=== PATIENT | female | born 1965 | race Caucasian/White ===

== ENCOUNTER 2017-05-30 20:00 | Emergency (ER) | payer MEDICAID ==
[~2017-05-30] VITALS: Ht 165.1 cm; Wt 96.0 kg
[~2017-05-30 20:00] MED LIST: ASPI-1159 PO; ATOR20TA65 PO
[2017-05-30 22:03] LABS: CLARITY URINE CLEAR (CLEAR); COLOR URINE YELLOW (YELLOW); GLUCOSE URINE NEGATIVE (NEGATIVE); KETONES URINE NEGATIVE (NEGATIVE); LEUKOCYTE ESTERASE URINE TRACE (NEGATIVE); NITRITE URINE NEGATIVE (NEGATIVE); OCCULT BLOOD URINE 2+ (NEGATIVE); PROTEIN URINE NEGATIVE (NEGATIVE); SPECIFIC GRAVITY URINE 1.028 (1.005-1.030); UROBILINOGEN URINE 0.2 E.U./dL (0.2-1.0)
[2017-05-30 22:34] LABS: CHLORIDE 106 mEq/L (98-107)
[2017-05-30 22:38] LABS: CARBON DIOXIDE 28 mEq/L (21-32)
[2017-05-30 22:39] LABS: BASOPHILS % 0.6 % (0.0-2.0); EOSINOPHILS % 1.1 % (0.0-5.0); HEMATOCRIT. 38.2 % (36.0-48.0); HEMOGLOBIN. 12.8 g/dL (12.0-16.0); MEAN CORPUSCULAR HEMOGLOBIN 29.1 pg (28.0-32.0); MEAN CORPUSCULAR VOLUME 86.8 fL (81.0-99.0); MEAN PLATELET VOLUME 8.4 fl (7.4-10.4); MONOCYTES % 7.4 % (2.0-8.0); NEUTROPHILS % 63.9 % (40.0-76.0); PLATELET 326 x1000/uL (130-400); RED CELL DISTRIBUTION WIDTH 15.5 % (11.6-14.6)
[2017-05-30 22:42] LABS: INR 2.9; PARTIAL THROMBOPLASTIN TIME 36.9 sec (23.4-31.0); PROTHROMBIN TIME 30.1 sec (9.4-11.6)
[2017-05-30 22:45] LABS: TROPONIN I < 0.02 ng/mL (0.00-0.04)
[2017-05-30] MEDS ORDERED: IOHEXOL-350 100 ML BOTTLE ONE (23:38)
[2017-05-31 00:01] VITALS: BP 130/81
[2017-05-31] MEDS ORDERED: IOHEXOL-350 100 ML BOTTLE ONE (01:16)
== END 2017-05-31 05:45 | disposition home or self-care (01) ==
LOC: ER 20:00
DX: M79.602 Pain in left arm (principal); M54.2 Cervicalgia
CPT/HCPCS: 36415; 70498; 71010; 71275; 80053; 81001; 84484; 85025; 85610; 85730; 93005; 93971; 99285; Q9967; Z7610

== ENCOUNTER 2018-10-13 12:58 | Emergency (ER) | payer MEDICAID ==
[~2018-10-13] VITALS: Ht 165.1 cm; Wt 100.0 kg
[~2018-10-13 12:58] MED LIST changes: +WARF10TA21 PO
[2018-10-13 14:15] VITALS: BP 146/93
== END 2018-10-13 16:43 | disposition left against medical advice (07) ==
LOC: ER 12:58
DX: Z53.21 Procedure and treatment not carried out due to patient leaving prior to being seen by health care provider (principal)